=== PATIENT | female | born 1935 | race Caucasian/White ===

== ENCOUNTER → 2016-05-22 | Outpatient (CLI) | payer MEDICARE ==
[2016-05-22 10:00] LABS: ALBUMIN 3.7 GM/DL (3.2-5.2); ALBUMIN/GLOBULIN RATIO 1.09 (1.00-1.93); ALKALINE PHOSPHATASE 61 U/L (45-117); ALT/SGPT 23 U/L (12-78); ANION GAP 6 MEQ/L (8-16); AST/SGOT 18 U/L (15-37); BILIRUBIN,TOTAL 0.4 MG/DL (0.2-1.0); BLOOD UREA NITROGEN 28 MG/DL (7-18); CALCIUM LEVEL 8.8 MG/DL (8.8-10.2); CARBON DIOXIDE LEVEL 31 MEQ/L (21-32); CHLORIDE LEVEL 105 MEQ/L (98-107); CHOLESTEROL LEVEL 209 MG/DL (<200); CREATININE FOR GFR 0.74 MG/DL (0.55-1.02); GLOMERULAR FILTRATION RATE > 60.0 (>32); GLUCOSE, FASTING 97 MG/DL (83-110); POTASSIUM SERUM 3.9 MEQ/L (3.5-5.1); SODIUM LEVEL 142 MEQ/L (136-145); TOTAL PROTEIN 7.1 GM/DL (6.4-8.2); TRIGLYCERIDES LEVEL 123 MG/DL (<150)
== END ==
LOC: M WUC 08:03
PROVIDERS: ATTEND Internal Medicine
DX: E78.00 Pure hypercholesterolemia, unspecified (principal)

== ENCOUNTER → 2016-10-04 | Outpatient (REF) | payer MEDICARE ==
[~2016-10-04] MED LIST: ALEN70TA39 PO; ASPI81TA85 PO; ATOR1TAB19 PO; BISO5TAB5 PO; CALC600T60 PO; CEPH500C PO; D 50CAP PO; ERYT5OPO OD; FISH306C PO
== END ==
LOC: M SFHCPLAZ 11:21
PROVIDERS: ATTEND Nurse Practitioner Adult Health
DX: R30.0 Dysuria (principal)

== ENCOUNTER → 2016-10-16 | Outpatient (REF) | payer MEDICARE | LOC: M LAB REF 14:37 | PROVIDERS: ATTEND Ophthalmology | DX: L57.0 Actinic keratosis (principal) ==

== ENCOUNTER 2016-10-20 21:54 | Emergency (ER) | payer MEDICARE ==
[~2016-10-20] VITALS: Ht 152.4 cm; Wt 47.7 kg
[2016-10-20] MEDS ORDERED: CALC600T60 PO (22:14)
[2016-10-20] MEDS ORDERED: FISH306C PO (22:14)
[2016-10-20] MEDS ORDERED: ALEN70TA39 PO (22:14)
[2016-10-20] MEDS ORDERED: ATOR1TAB19 PO (22:14)
[2016-10-20] MEDS ORDERED: D 50CAP PO (22:14)
[2016-10-20] MEDS ORDERED: ASPI81TA85 PO (22:14)
[2016-10-20] MEDS ORDERED: CEPH500C PO (22:14)
[2016-10-20] MEDS ORDERED: ERYT5OPO OD (22:14)
[2016-10-20] MEDS ORDERED: BISO5TAB5 PO (22:14)
[2016-10-20] MEDS ORDERED: OXYMETAZOLINE NASAL SPRAY (AFRIN) ONE (23:30)
[2016-10-21 00:34] VITALS: BP 143/78
== END 2016-10-21 00:57 | disposition home or self-care (01) ==
LOC: M ED 21:54
DX: R04.0 Epistaxis (principal); Z79.82 Long term (current) use of aspirin; Z79.899 Other long term (current) drug therapy

== ENCOUNTER → 2016-12-06 | Outpatient (CLI) | payer MEDICARE ==
[2016-12-06 09:22] LABS: ALBUMIN 3.5 GM/DL (3.2-5.2); ALBUMIN/GLOBULIN RATIO 0.92 (1.00-1.93); ALKALINE PHOSPHATASE 66 U/L (45-117); ALT/SGPT 26 U/L (12-78); ANION GAP 6 MEQ/L (8-16); AST/SGOT 18 U/L (15-37); BILIRUBIN,TOTAL 0.5 MG/DL (0.2-1.0); BLOOD UREA NITROGEN 20 MG/DL (7-18); CALCIUM LEVEL 9.1 MG/DL (8.8-10.2); CARBON DIOXIDE LEVEL 29 MEQ/L (21-32); CHLORIDE LEVEL 105 MEQ/L (98-107); CHOLESTEROL LEVEL 205 MG/DL (<200); CREATININE FOR GFR 0.81 MG/DL (0.55-1.02); GLOMERULAR FILTRATION RATE > 60.0 (>32); GLUCOSE, FASTING 95 MG/DL (83-110); POTASSIUM SERUM 4.2 MEQ/L (3.5-5.1); SODIUM LEVEL 140 MEQ/L (136-145); TOTAL PROTEIN 7.3 GM/DL (6.4-8.2); TRIGLYCERIDES LEVEL 141 MG/DL (<150)
== END ==
LOC: M WUC 08:02
PROVIDERS: ATTEND Internal Medicine
DX: E78.00 Pure hypercholesterolemia, unspecified (principal); M81.0 Age-related osteoporosis without current pathological fracture

== ENCOUNTER → 2016-12-18 | Outpatient (REF) | payer MEDICARE | LOC: M SFHCPLAZ 12:25 | PROVIDERS: ATTEND Nurse Practitioner Adult Health | DX: Z12.72 Encounter for screening for malignant neoplasm of vagina (principal) ==

== ENCOUNTER 2017-06-01 10:22 | Day surgery (SDC) | payer MEDICARE ==
[2017-06-01] MEDS: LR 1,000 ML IV (11:25)
[2017-06-01] MEDS ORDERED: PROPOFOL 200 MG/20 ML VIAL As Ordered (12:38)
[2017-06-01] MEDS ORDERED: LIDOCAINE 2% INJ 100 MG/5 ML SDV (FOR ANES.) As Ordered (12:38)
[2017-06-01] MEDS ORDERED: fentaNYL 100 MCG/2 ML INJECTION (J3010) As Ordered (12:39)
[2017-06-01] MEDS ORDERED: MIDAZOLAM INJ 2 MG/2 ML VIAL (J2250) As Ordered (12:39)
[2017-06-01] MEDS ORDERED: ePHEDrine SULFATE 25 MG/5 ML(5MG/ML) SYRINGE As Ordered (14:03)
[2017-06-01] MEDS ORDERED: ONDANSETRON 4MG/2ML VIAL (J2405) IV (14:45)
[2017-06-01] MEDS ORDERED: NORCO, ANEXSIA 5/325MG TABLET (HYDROcodone/ACETAMINOPHEN) PO ×2 (14:45)
[2017-06-01] MEDS ORDERED: fentaNYL 100 MCG/2 ML INJECTION (J3010) IV (14:45)
[2017-06-01] MEDS ORDERED: LR 1,000 ML IV (14:45)
== END 2017-06-01 16:20 | disposition home or self-care (01) ==
LOC: M SDC 10:22
DX: D12.9 Benign neoplasm of anus and anal canal (principal); E78.5 Hyperlipidemia, unspecified; Z79.899 Other long term (current) drug therapy; Z79.82 Long term (current) use of aspirin
CPT/HCPCS: 46922

== ENCOUNTER 2017-12-19 07:30 | Day surgery (SDC) | payer MEDICARE ==
[2017-12-19] MEDS: NS 1,000 ML IV (07:45)
[2017-12-19] MEDS ORDERED: PROPOFOL 200 MG/20 ML VIAL As Ordered ×2 (08:51→09:12)
[2017-12-19] MEDS ORDERED: LIDOCAINE 2% INJ 100 MG/5 ML SDV (FOR ANES.) As Ordered (08:51)
== END 2017-12-19 09:46 | disposition home or self-care (01) ==
LOC: M OPP 07:30
DX: R19.7 Diarrhea, unspecified (principal); M81.0 Age-related osteoporosis without current pathological fracture; E78.00 Pure hypercholesterolemia, unspecified; Z79.82 Long term (current) use of aspirin; Z79.899 Other long term (current) drug therapy; Z90.710 Acquired absence of both cervix and uterus; Z91.89 Other specified personal risk factors, not elsewhere classified
CPT/HCPCS: 45378

== ENCOUNTER → 2017-12-26 | Outpatient (CLI) | payer MEDICARE ==
[2017-12-26 09:10] LABS: HEMATOCRIT 43.5 % (36.0-47.0); HEMOGLOBIN 14.1 g/dl (12.0-15.5); MEAN CORPUSCULAR HGB CONC 32.4 g/dl (32.0-36.5); MEAN CORPUSCULAR VOLUME 89.3 fl (80.0-96.0); PLATELET COUNT, AUTOMATED 274 10^3/uL (150-450); RED BLOOD COUNT 4.87 10^6/uL (4.00-5.40); RED CELL DISTRIBUTION WIDTH 13.1 % (11.5-14.5); WHITE BLOOD COUNT 4.9 10^3/uL (4.0-10.0)
[2017-12-26 09:51] LABS: ALBUMIN 3.8 GM/DL (3.2-5.2); ALBUMIN/GLOBULIN RATIO 1.09 (1.00-1.93); ALKALINE PHOSPHATASE 68 U/L (45-117); ALT/SGPT 26 U/L (12-78); ANION GAP 6 MEQ/L (8-16); AST/SGOT 21 U/L (7-37); BILIRUBIN,TOTAL 0.5 MG/DL (0.2-1.0); BLOOD UREA NITROGEN 16 MG/DL (7-18); CALCIUM LEVEL 9.4 MG/DL (8.8-10.2); CARBON DIOXIDE LEVEL 30 MEQ/L (21-32); CHLORIDE LEVEL 104 MEQ/L (98-107); CREATININE FOR GFR 0.86 MG/DL (0.55-1.30); GLOMERULAR FILTRATION RATE > 60.0 (>32); GLUCOSE, FASTING 94 MG/DL (70-100); MAGNESIUM LEVEL 2.4 MG/DL (1.8-2.4); POTASSIUM SERUM 4.3 MEQ/L (3.5-5.1); SODIUM LEVEL 140 MEQ/L (136-145); TOTAL PROTEIN 7.3 GM/DL (6.4-8.2)
[2017-12-26 10:00] LABS: TOTAL 25(OH) VITAMIN D 67.3 NG/ML (30.0-100.0)
== END ==
LOC: M WUC 08:12
DX: E78.00 Pure hypercholesterolemia, unspecified (principal); I47.1 Supraventricular tachycardia; M81.0 Age-related osteoporosis without current pathological fracture; Z86.010 Personal history of colon polyps; Z79.899 Other long term (current) drug therapy
CPT/HCPCS: 83735

== ENCOUNTER → 2018-02-14 | Outpatient (REF) | payer MEDICARE | LOC: M LAB REF 09:02 | DX: R19.8 Other specified symptoms and signs involving the digestive system and abdomen (principal) | CPT/HCPCS: 83630 ==

== ENCOUNTER → 2018-02-20 | Outpatient (CLI) | payer MEDICARE ==
[~2018-02-20] MED LIST changes: -ALEN70TA39 PO; +ALEN70TA57 PO; +MULT1TAB10 PO; +REFR0.5D8 OU; +REST0.05 OU; +VITA500T PO
--- NOTE | 2018-02-20 10:17 | REP ---
KUB: Single view. History: Change in bowel habits. Sitz marker study. Sitz markers were taken on February 15 according to the patient. Findings: Bowel gas pattern is normal. There are no visible retained Sitz markers in the bowel content. Psoas margins and flank stripes are intact. No mass, organomegaly or pathologic calcification is seen. 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 Impression: No retained Sitz markers seen. Electronically Signed by Christopher Coreas MD 02/20/2018 08:29 P
== END ==
LOC: M RAD 02-15 09:28
PROVIDERS: ATTEND Physician Assistant Medical
DX: R19.4 Change in bowel habit (principal)

== ENCOUNTER → 2018-07-02 | Outpatient (CLI) | payer MEDICARE ==
[~2018-07-02] MED LIST changes: -ALEN70TA57 PO; +ALEN70TA74 PO; +ERYT1OIN26 OD; -ERYT5OPO OD
[2018-07-02 09:33] LABS: ALBUMIN 3.7 GM/DL (3.2-5.2); BILIRUBIN,TOTAL 0.4 MG/DL (0.2-1.0); CALCIUM LEVEL 9.1 MG/DL (8.8-10.2); CHOLESTEROL RISK RATIO 2.636 (<5); GLOMERULAR FILTRATION RATE 56.2 (>32); POTASSIUM SERUM 4.2 MEQ/L (3.5-5.1); TOTAL PROTEIN 7.1 GM/DL (6.4-8.2)
== END ==
LOC: M WUC 08:08
PROVIDERS: ATTEND Internal Medicine
DX: E78.00 Pure hypercholesterolemia, unspecified (principal)

== ENCOUNTER → 2018-11-05 | Outpatient (CLI) | payer MEDICARE ==
[~2018-11-05] MED LIST changes: -BISO5TAB5 PO; +BISO5TAB9 PO
--- NOTE | 2018-11-05 10:26 | REP ---
Clinical: Nonacute trauma to the fifth toe. Technique: AP, lateral, bilateral oblique views of the left foot. Findings: Generalized age-related degenerative changes are appreciated. No acute fracture or dislocation is appreciated. No periosteal reaction identified to suggest healed fracture. No subcutaneous emphysema or radiodense foreign body. Impression: Generalized age-related changes. No evidence for acute or healed injury. Electronically Signed by Marquis Weber MD 11/05/2018 10:18 A
== END ==
LOC: M WUC 09:48
PROVIDERS: ATTEND Internal Medicine
DX: S90.935A Unspecified superficial injury of left lesser toe(s), initial encounter (principal)

== ENCOUNTER → 2019-01-08 | Outpatient (CLI) | payer MEDICARE ==
[2019-01-08 10:13] LABS: HEMATOCRIT 42.1 % (36.0-47.0); HEMOGLOBIN 13.9 g/dl (12.0-15.5); MEAN CORPUSCULAR HEMOGLOBIN 30.3 pg (27.0-33.0); MEAN CORPUSCULAR VOLUME 91.7 fl (80.0-96.0); PLATELET COUNT, AUTOMATED 261 10^3/uL (150-450); RED BLOOD COUNT 4.59 10^6/uL (4.00-5.40); WHITE BLOOD COUNT 5.5 10^3/uL (4.0-10.0)
[2019-01-08 10:51] LABS: ALBUMIN 3.5 GM/DL (3.2-5.2); ALT/SGPT 25 U/L (12-78); BILIRUBIN,TOTAL 0.5 MG/DL (0.2-1.0); BLOOD UREA NITROGEN 21 MG/DL (7-18); CALCIUM LEVEL 9.4 MG/DL (8.8-10.2); CARBON DIOXIDE LEVEL 31 MEQ/L (21-32); CHLORIDE LEVEL 105 MEQ/L (98-107); CREATININE FOR GFR 0.85 MG/DL (0.55-1.30); GLOMERULAR FILTRATION RATE > 60.0 (>32); GLUCOSE, FASTING 87 MG/DL (70-100); POTASSIUM SERUM 4.5 MEQ/L (3.5-5.1); SODIUM LEVEL 141 MEQ/L (136-145); TOTAL PROTEIN 7.4 GM/DL (6.4-8.2)
[2019-01-08 10:52] LABS: TOTAL 25(OH) VITAMIN D 59.9 NG/ML (30.0-100.0)
== END ==
LOC: M WUC 08:04
PROVIDERS: ATTEND Internal Medicine
DX: M81.0 Age-related osteoporosis without current pathological fracture (principal); Z86.010 Personal history of colon polyps; I47.1 Supraventricular tachycardia; E78.00 Pure hypercholesterolemia, unspecified

== ENCOUNTER → 2019-01-22 | Outpatient (CLI) | payer MEDICARE ==
--- NOTE | 2019-01-30 09:31 | SLEEPHOME ---
DATE OF PROCEDURE: 01/22/2019 ORDERED BY: Dr. Zarate Diagnostic home sleep testing was performed due to concern for the obstructive sleep apnea syndrome. For testing a nocturnal T3 respiratory monitoring device was used. Continuous record was made of pulse, oxygen saturation, airflow, chest, abdominal strain and body position. 11 hours and 59 minutes of data were reviewed. There were 8 hours and 29 minutes marked as time in bed. During the interval marked time in bed there were 45 respiratory events identified of 10 seconds in duration or greater for a respiratory event index of 5.3. The events were primarily obstructive. Baseline pulse rate 54. Pulse rate ranged 48-89. Baseline saturation 94%. Saturations fell to 87%. Testing was performed in both the supine and nonsupine positions. Respiratory events were more common in the supine posture. IMPRESSION: Abnormal home sleep testing with repetitive respiratory events and oxygen desaturations to 87% with a respiratory event index of 5.3 is consistent with the obstructive sleep apnea syndrome. RECOMMENDATIONS: Sleep position for avoidance of the supine posture may be sufficient. If the patient's symptoms persists, referral for formal sleep evaluation would be prudent.
== END ==
LOC: M SLEEP HO 09:15
PROVIDERS: ATTEND Internal Medicine
DX: R29.818 Other symptoms and signs involving the nervous system (principal)

== ENCOUNTER → 2019-02-16 | Outpatient (CLI) | payer MEDICARE ==
--- NOTE | 2019-02-16 16:26 | REP ---
Chest x-ray: Two views. History: Acute bronchitis. Findings: The lungs are well inflated and clear. Pleural angles are sharp. Heart size is normal. The aorta is calcific. Pulmonary vasculature is not increased. Impression: No acute disease. Electronically Signed by Christopher Coreas MD 02/16/2019 04:17 P
== END ==
LOC: M WUC 14:46
PROVIDERS: ATTEND Physician Assistant
DX: J20.9 Acute bronchitis, unspecified (principal); J01.10 Acute frontal sinusitis, unspecified

== ENCOUNTER → 2019-04-25 | Outpatient (CLI) | payer MEDICARE ==
[~2019-04-25] MED LIST changes: +BISO5TAB14 PO; -BISO5TAB9 PO
--- NOTE | 2019-04-25 12:53 | REPPI ---
Clinical: Dyspnea on exertion . Comparison: 02/16/2019 of the . Technique: PA and lateral. Findings: The mediastinum and cardiac silhouette are normal. The lung lo are clear and without acute consolidation, effusion, or pneumothorax. The skeletal structures are intact and normal. Impression: 1. No acute cardiopulmonary process. Electronically Signed by Marquis Weber MD 04/25/2019 12:45 P
== END ==
LOC: M PLAIMG 12:01
PROVIDERS: ATTEND Internal Medicine
DX: R06.09 Other forms of dyspnea (principal)
CPT/HCPCS: 71046; 93005; G0463

== ENCOUNTER → 2019-04-26 | Outpatient (CLI) | payer MEDICARE ==
--- NOTE | 2019-04-29 18:54 | HOLTMON ---
[facility] Test Date: 2019-04-26 Pat Name: CA MORE Department: Room: - Gender: Female Political Organizer: Teri Blackburn/RONIT ALEXANDER : 1935 Requested By: Donnie Zarate Order Number: [id number] Reading MD: Sandeep Wolf Interpretive Statements Underlying sinus rhythm with rate varying from 48 bpm at 6:39 AM in 114 bpm at 7:08 PM, averaging 66 bpm. An average of 10 PACs per hour, 1 atrial couplet per hour but no PSVT. Average of approximately 10 PVCs per hour, one ventricular couplet and one run of accelerated idioventricular rhythm averaging 75 bpm but no ventricular tachycardia. No significant pauses or AV block. The patient reported "fast heartbeat" on 3 separate occasions that did not correlate with any rhythm or rate change; sinus at 64-75 bpm. Rhythm findings not outside normal limits. Electronically Signed on 04-29-2019 18:53:48 EST by Sandeep Wolf
== END ==
LOC: M EKG 08:35
PROVIDERS: ATTEND Internal Medicine
DX: I47.1 Supraventricular tachycardia (principal)

== ENCOUNTER → 2019-05-12 | Outpatient (CLI) | payer MEDICARE | LOC: M SLEEP 19:04 | PROVIDERS: ATTEND Nurse Practitioner Family | DX: G47.33 Obstructive sleep apnea (adult) (pediatric) (principal) ==

== ENCOUNTER → 2019-07-14 | Outpatient (CLI) | payer MEDICARE ==
[~2019-07-14] MED LIST changes: -ERYT1OIN26 OD; +ERYT5OIN25 OD; +VITA-243 PO; -VITA500T PO
[2019-07-14 12:12] LABS: ALBUMIN 3.6 GM/DL (3.2-5.2); ALT/SGPT 25 U/L (12-78); BILIRUBIN,TOTAL 0.5 MG/DL (0.2-1.0); BLOOD UREA NITROGEN 22 MG/DL (7-18); CALCIUM LEVEL 8.6 MG/DL (8.8-10.2); CARBON DIOXIDE LEVEL 29 MEQ/L (21-32); CHLORIDE LEVEL 104 MEQ/L (98-107); CHOLESTEROL LEVEL 224 MG/DL (<200); CHOLESTEROL RISK RATIO 2.986 (<5); GLOMERULAR FILTRATION RATE > 60.0 (>32); GLUCOSE, FASTING 91 MG/DL (70-100); HDL CHOLESTEROL 75 MG/DL (>40); LDL CHOLESTEROL 126 MG/DL (<100); NON-HDL-C 149 MG/DL; POTASSIUM SERUM 4.2 MEQ/L (3.5-5.1); SODIUM LEVEL 139 MEQ/L (136-145); TOTAL PROTEIN 7.2 GM/DL (6.4-8.2); TRIGLYCERIDES LEVEL 115 MG/DL (<150)
== END ==
LOC: M WUC 08:13
PROVIDERS: ATTEND Internal Medicine
DX: E78.00 Pure hypercholesterolemia, unspecified (principal)

== ENCOUNTER → 2020-01-30 | Outpatient (CLI) | payer MEDICARE ==
[~2020-01-30] MED LIST changes: -ASPI81TA85 PO; +ASPI81TA86 PO
[2020-01-30 12:20] LABS: ALBUMIN 3.7 GM/DL (3.2-5.2); ALT/SGPT 24 U/L (12-78); BILIRUBIN,TOTAL 0.4 MG/DL (0.2-1.0); BLOOD UREA NITROGEN 25 MG/DL (7-18); CALCIUM LEVEL 9.1 MG/DL (8.8-10.2); CARBON DIOXIDE LEVEL 30 MEQ/L (21-32); CHLORIDE LEVEL 104 MEQ/L (98-107); CHOLESTEROL LEVEL 214 MG/DL (<200); CHOLESTEROL RISK RATIO 2.779 (<5); CREATININE FOR GFR 0.92 MG/DL (0.55-1.30); GLOMERULAR FILTRATION RATE > 60.0 (>32); GLUCOSE, FASTING 96 MG/DL (70-100); HDL CHOLESTEROL 77 MG/DL (>40); LDL CHOLESTEROL 115 MG/DL (<100); NON-HDL-C 137 MG/DL; SODIUM LEVEL 139 MEQ/L (136-145); TOTAL PROTEIN 7.4 GM/DL (6.4-8.2); TRIGLYCERIDES LEVEL 110 MG/DL (<150)
== END ==
LOC: M WUC 08:15
PROVIDERS: ATTEND Internal Medicine
DX: E78.00 Pure hypercholesterolemia, unspecified (principal)

== ENCOUNTER → 2020-02-04 | Outpatient (CLI) | payer MEDICARE ==
[2020-02-04 12:52] VITALS: BP 132/78
--- NOTE | 2020-02-04 16:31 | REP ---
INDICATION: R92.8 RIGHT U/S GUIDED BX/POSSIBLE ASPIRATION/CK CLIP PLACEM. Post cyst aspiration under ultrasound guidance right breast. No marker clip placed. COMPARISON: Comparison mammography December 25, 2019. TECHNIQUE: Mediolateral oblique and craniocaudal mammographic views right breast were obtained with 3D tomography. CAD was utilized. FINDINGS: Scattered fibroglandular elements are seen. The previously noted low-density nodular opacity in the inferior medial aspect of the right breast is no longer apparent. No marker clip is visualized. There are scattered benign macrocalcifications. No suspicious mammographic finding. The Volpara volumetric breast density pattern is B. IMPRESSION: BIRADS/ACR category 2 benign mammogram . This mammogram was interpreted with the aid of an FDA-approved computer-aided detection system. RECOMMENDATION: Repeat screening mammography recommended 1 year (for women over 40). The patient letter being requested is M2. <Electronically signed by Hipolito Coreas > 02/04/20 [id number]
--- NOTE | 2020-02-04 18:50 | REP ---
INDICATION: R92.8 RIGHT BREAST BX/POSSIBLE ASPIRATION. COMPARISON: Comparison sonography 12/25/2019.. TECHNIQUE: Ultrasound guidance is provided to Dr. Armando. FINDINGS: Ultrasound guidance was provided to Dr. Armando who performed ultrasound-guided cyst aspiration right breast 3 o'clock position. IMPRESSION: Sonographic guidance for procedural imaging. <Electronically signed by Hipolito Coreas > 02/04/20 [id number]
--- NOTE | 2020-02-04 21:01 | ROOPDOC ---
[facility] Report Of Operation Report of Operation Date of the procedure:02/04/20 Diagnosis:Right suspicious lesion Procedure:Ultrasound guided aspiration of Right breast lesion Proceduralist: Ashley Stern D.O. EBL: minimal Lidocaine 1% LOT [id number] Expiration: 10/2022 Sodium Bicarbonate 8.4% LOT [id number] Expiration: 12/2020 Procedure details: Patient had abnormal right breast mammogram which was read ad BIRADS4. Mammogram showed nodule on fly views. Sonographic target was identified at 3:00 2-3 CFN which was felt to be a two adjacent nodules, likely solid per radiology report. I discussed with patient that before biopsy is done I will attempt aspiration since on my exam the lesions look more cystic. Informed consent was obtained. The most common risk and possible complications including bleeding, hematoma, bruising, infection, injury to surrounding structures were explained to the patient and she expressed understanding. Patient was taken to the procedure room and placed on the bed in the supine position. Appropriate time out was done stating patients name, date of , and the procedure to be performed. The right breast was prepped and draped in the usual fashion. The ultrasound was used to confirm the location of the suspicious cystic lesion in the right breast at 3:00 2-3 centimeters from the nipple. Plain Lidocaine 1% and 8.4% sodium bicarbonate 10:1 mix was used to numb the skin, and tissues along the anticipated aspiration tract. 18 G needle was used to aspirate cyst under direct ultrasound guidance. 1 cc was aspirated. The as pirated fluid was cloudy and was sent for cytology. The cystic lesion completely collapsed and images were captured. At this point I decided that biopsy is not needed in this patient. No clip was placed. Manual pressure over the cyst aspiration site and tract was held. No bleeding was noted upon removal of the pressure. Post procedure right breast mammogram with tomosynthesis showed resolution of the nodular lesion. Patient tolerated procedure well. Discharge instructions were discussed with the patient and she expressed understanding. ASHLEY STERN DO Feb 04, 2020 21:01
== END ==
LOC: M WHCPRO 10:37
PROVIDERS: ATTEND Surgery
DX: N60.11 Diffuse cystic mastopathy of right breast (principal)
CPT/HCPCS: 10005; 77065; 88173; G0279

== ENCOUNTER → 2020-02-11 | Outpatient (CLI) | payer SELFPAY | LOC: M LABSMTC 13:26 | PROVIDERS: ATTEND Pediatrics | DX: Z11.59 Encounter for screening for other viral diseases (principal) ==

== ENCOUNTER → 2020-08-13 | Outpatient (CLI) | payer MEDICARE ==
[~2020-08-13] MED LIST changes: -ALEN70TA74 PO; +ALEN70TA82 PO
[2020-08-13 09:54] LABS: MEAN CORPUSCULAR HEMOGLOBIN 29.4 pg (27.0-33.0); MEAN CORPUSCULAR HGB CONC 32.6 g/dl (32.0-36.5); MEAN CORPUSCULAR VOLUME 90.3 fl (80.0-96.0); PLATELET COUNT, AUTOMATED 255 10^3/uL (150-450); RED BLOOD COUNT 4.76 10^6/uL (4.00-5.40); WHITE BLOOD COUNT 5.1 10^3/uL (4.0-10.0)
[2020-08-13 10:22] LABS: ALBUMIN 3.7 GM/DL (3.2-5.2); ALT/SGPT 28 U/L (12-78); BILIRUBIN,TOTAL 0.5 MG/DL (0.2-1.0); BLOOD UREA NITROGEN 22 MG/DL (7-18); CALCIUM LEVEL 9.1 MG/DL (8.8-10.2); CARBON DIOXIDE LEVEL 31 MEQ/L (21-32); CHLORIDE LEVEL 107 MEQ/L (98-107); CHOLESTEROL LEVEL 187 MG/DL (<200); CHOLESTEROL RISK RATIO 2.367 (<5); CREATININE FOR GFR 0.84 MG/DL (0.55-1.30); GLOMERULAR FILTRATION RATE > 60.0 (>32); GLUCOSE, FASTING 95 MG/DL (70-100); HDL CHOLESTEROL 79 MG/DL (>40); LDL CHOLESTEROL 92 MG/DL (<100); NON-HDL-C 108 MG/DL; POTASSIUM SERUM 4.3 MEQ/L (3.5-5.1); SODIUM LEVEL 141 MEQ/L (136-145); TOTAL PROTEIN 7.3 GM/DL (6.4-8.2); TRIGLYCERIDES LEVEL 80 MG/DL (<150)
== END ==
LOC: M WUC 08:07
PROVIDERS: ATTEND Nurse Practitioner Adult Health
DX: Z86.010 Personal history of colon polyps (principal); E78.00 Pure hypercholesterolemia, unspecified; I47.1 Supraventricular tachycardia; M81.0 Age-related osteoporosis without current pathological fracture

== ENCOUNTER → 2021-02-09 | Outpatient (CLI) | payer MEDICARE ==
[2021-02-09 10:41] LABS: ALBUMIN 3.7 GM/DL (3.2-5.2); ALT/SGPT 32 U/L (12-78); BILIRUBIN,TOTAL 0.6 MG/DL (0.2-1.0); BLOOD UREA NITROGEN 27 MG/DL (7-18); CALCIUM LEVEL 8.9 MG/DL (8.8-10.2); CARBON DIOXIDE LEVEL 32 MEQ/L (21-32); CHLORIDE LEVEL 106 MEQ/L (98-107); CHOLESTEROL LEVEL 207 MG/DL (<200); CHOLESTEROL RISK RATIO 2.555 (<5); CREATININE FOR GFR 0.88 MG/DL (0.55-1.30); GLOMERULAR FILTRATION RATE > 60.0 (>32); GLUCOSE, FASTING 103 MG/DL (70-100); HDL CHOLESTEROL 81 MG/DL (>40); LDL CHOLESTEROL 106 MG/DL (<100); NON-HDL-C 126 MG/DL; POTASSIUM SERUM 4.3 MEQ/L (3.5-5.1); SODIUM LEVEL 140 MEQ/L (136-145); TOTAL PROTEIN 7.5 GM/DL (6.4-8.2); TRIGLYCERIDES LEVEL 99 MG/DL (<150)
== END ==
LOC: M WUC 08:03
PROVIDERS: ATTEND Internal Medicine
DX: E78.00 Pure hypercholesterolemia, unspecified (principal); Z11.59 Encounter for screening for other viral diseases
CPT/HCPCS: 36415; 80053; 80061; G0472

== ENCOUNTER → 2021-04-18 | Outpatient (CLI) | payer MEDICARE | LOC: M WHC 08:05 | PROVIDERS: ATTEND Internal Medicine | DX: Z12.31 Encounter for screening mammogram for malignant neoplasm of breast (principal) ==

== ENCOUNTER → 2021-06-23 | Outpatient (REF) | payer MEDICARE | LOC: M SFHCWAGY 13:16 | PROVIDERS: ATTEND Surgery | DX: L98.9 Disorder of the skin and subcutaneous tissue, unspecified (principal) | CPT/HCPCS: 11104; 88305; G0463 ==

== ENCOUNTER → 2021-08-16 | Outpatient (CLI) | payer MEDICARE ==
[2021-08-16 10:34] LABS: ALBUMIN 3.5 GM/DL (3.2-5.2); ALT/SGPT 23 U/L (12-78); BILIRUBIN,TOTAL 0.5 MG/DL (0.2-1.0); BLOOD UREA NITROGEN 21 MG/DL (7-18); CARBON DIOXIDE LEVEL 31 MEQ/L (21-32); CHLORIDE LEVEL 107 MEQ/L (98-107); CHOLESTEROL LEVEL 215 MG/DL (<200); CHOLESTEROL RISK RATIO 2.986 (<5); CREATININE FOR GFR 0.87 MG/DL (0.55-1.30); GLOMERULAR FILTRATION RATE > 60.0 (>32); GLUCOSE, FASTING 94 MG/DL (70-100); HDL CHOLESTEROL 72 MG/DL (>40); LDL CHOLESTEROL 124 MG/DL (<100); NON-HDL-C 143 MG/DL; POTASSIUM SERUM 4.2 MEQ/L (3.5-5.1); SODIUM LEVEL 140 MEQ/L (136-145); TOTAL 25(OH) VITAMIN D 66.1 NG/ML (30.0-100.0); TOTAL PROTEIN 7.2 GM/DL (6.4-8.2); TRIGLYCERIDES LEVEL 95 MG/DL (<150)
== END ==
LOC: M WUC 08:03
PROVIDERS: ATTEND Internal Medicine
DX: E78.00 Pure hypercholesterolemia, unspecified (principal); M81.0 Age-related osteoporosis without current pathological fracture

== ENCOUNTER → 2021-09-19 | Outpatient (CLI) | payer MEDICARE | LOC: M WUC 10:02 | PROVIDERS: ATTEND Physician Assistant | DX: M77.31 Calcaneal spur, right foot (principal) ==

== ENCOUNTER → 2021-12-06 | Outpatient (CLI) | payer MEDICARE | LOC: M RAD 11:43 | PROVIDERS: ATTEND Physician Assistant | DX: M79.661 Pain in right lower leg (principal) ==

== ENCOUNTER → 2021-12-07 | Outpatient (CLI) | payer MEDICARE | LOC: M WUC 08:49 | PROVIDERS: ATTEND Physician Assistant | DX: M77.31 Calcaneal spur, right foot (principal); M79.671 Pain in right foot; R30.0 Dysuria ==

== ENCOUNTER → 2021-12-27 | Outpatient (REF) | payer MEDICARE | LOC: M SMT 13:01 | PROVIDERS: ATTEND Physician Assistant | DX: R39.9 Unspecified symptoms and signs involving the genitourinary system (principal) ==

== ENCOUNTER → 2022-01-24 | Outpatient (CLI) | payer MEDICARE ==
[2022-01-24 15:46] LABS: APPEARANCE, URINE MANUAL CLEAR (CLEAR); BILIRUBIN, URINE MANUAL NEGATIVE (NEGATIVE); BLOOD URINE MANUAL NEGATIVE (NEGATIVE); COLOR, URINE MANUAL LT YELLOW (YELLOW); GLUCOSE, URINE (UA) MANUAL NEGATIVE (NEGATIVE); KETONE, URINE MANUAL NEGATIVE (NEGATIVE); LEUKOCYTE ESTERASE, URINE MAN POSITIVE (NEGATIVE); NITRITE, URINE MANUAL NEGATIVE (NEGATIVE); PH,URINE MAN 5.5 UNITS (5.0 - 7.0); PROTEIN, URINE MANUAL NEGATIVE (NEGATIVE); SPECIFIC GRAVITY,URINE MANUAL 1.015 (1.002-1.035); UROBILINOGEN, URINE MANUAL NORMAL (NORMAL)
[2022-01-24 16:04] LABS: RENAL EPITHELIAL CELLS, URINE SMALL AMOUNT /hpf; SQUAMOUS EPITHELIAL CELL URINE SMALL AMOUNT /hpf (SMALL AMT)
[2022-01-24 16:05] LABS: BACTERIA, URINE NONE SEEN; HYALINE CAST, URINE NONE SEEN /lpf (0-1); MUCUS, URINE SMALL AMOUNT (NEGATIVE)
== END ==
LOC: M PLALAB 12:52
PROVIDERS: ATTEND Physician Assistant
DX: R31.9 Hematuria, unspecified (principal)

== ENCOUNTER → 2022-02-15 | Outpatient (CLI) | payer MEDICARE ==
[2022-02-15 10:02] LABS: HEMATOCRIT 43.7 % (36.0-47.0); HEMOGLOBIN 13.8 g/dl (12.0-15.5); MEAN CORPUSCULAR HEMOGLOBIN 28.2 pg (27.0-33.0); MEAN CORPUSCULAR HGB CONC 31.6 g/dl (32.0-36.5); MEAN CORPUSCULAR VOLUME 89.4 fl (80.0-96.0); PLATELET COUNT, AUTOMATED 302 10^3/uL (150-450); RED BLOOD COUNT 4.89 10^6/uL (4.00-5.40); WHITE BLOOD COUNT 5.5 10^3/uL (4.0-10.0)
[2022-02-15 10:35] LABS: HEMOGLOBIN A1c 5.6 % (4.0-6.0)
[2022-02-15 11:56] LABS: VITAMIN B12 LEVEL 732 PG/ML (211-911)
[2022-02-15 11:57] LABS: THYROID STIMULATING HORMONE 4.013 uIU/ML (0.55-4.78)
[2022-02-15 13:16] LABS: ALBUMIN 3.4 G/DL (3.2-5.2); ALKALINE PHOSPHATASE 69 U/L (46-116); ALT/SGPT 24 U/L (7.0-40); AST/SGOT 27 U/L (<34); BILIRUBIN,TOTAL 0.6 MG/DL (0.3-1.2); BLOOD UREA NITROGEN 22 MG/DL (9-23); CALCIUM LEVEL 8.9 MG/DL (8.3-10.6); CARBON DIOXIDE LEVEL 31 MMOL/L (20-31); CHLORIDE LEVEL 101 MMOL/L (98-107); CHOLESTEROL LEVEL 180 MG/DL (<200); CHOLESTEROL RISK RATIO 2.51 (<5); CREATININE FOR GFR 0.92 MG/DL (0.55-1.30); GLOMERULAR FILTRATION RATE > 60.0 (>32); GLUCOSE, FASTING 88 MG/DL (74-106); HDL CHOLESTEROL 71.7 MG/DL (>40); LDL CHOLESTEROL 88.5 MG/DL (<100); NON-HDL-C 108 MG/DL; POTASSIUM SERUM 4.6 MMOL/L (3.5-5.1); SODIUM LEVEL 139 MMOL/L (136-145); TOTAL PROTEIN 7.2 G/DL (5.7-8.2); TRIGLYCERIDES LEVEL 99 MG/DL (<150)
[2022-02-15 13:29] LABS: CREATININE, URINE 412.2 MG/DL
[2022-02-15 13:36] LABS: C REACTIVE PROTEIN QUANTITATIV < 0.40 MG/DL (<1.0)
== END ==
LOC: M WUC 08:13
PROVIDERS: ATTEND Internal Medicine Hematology
DX: E78.00 Pure hypercholesterolemia, unspecified (principal); Z79.899 Other long term (current) drug therapy

== ENCOUNTER → 2022-04-25 | Outpatient (CLI) | payer MEDICARE | LOC: M WHC 08:55 | PROVIDERS: ATTEND Internal Medicine Hematology | DX: Z12.31 Encounter for screening mammogram for malignant neoplasm of breast (principal); Z13.820 Encounter for screening for osteoporosis; M81.0 Age-related osteoporosis without current pathological fracture ==

== ENCOUNTER → 2022-05-09 | Outpatient (CLI) | payer MEDICARE | LOC: M PLALAB 09:37 | PROVIDERS: ATTEND Internal Medicine Cardiovascular Disease | DX: I47.20 Ventricular tachycardia, unspecified (principal) ==

== ENCOUNTER → 2022-06-01 | Outpatient (REF) | payer MEDICARE ==
[2022-06-01 19:27] LABS: CLOSTRIDIUM DIFFICILE PCR NEGATIVE (NEGATIVE)
== END ==
LOC: M SFHCPLAZ 17:52
PROVIDERS: ATTEND Internal Medicine Hematology
DX: R19.7 Diarrhea, unspecified (principal)

== ENCOUNTER 2022-06-10 21:00 | Emergency (ER) | payer MEDICARE ==
[~2022-06-10] VITALS: Ht 149.9 cm; Wt 55.5 kg
[2022-06-10 22:27] LABS: BASO % 0.6 % (0.0-1.0); EOS # 0.1 10^3/uL (0.0-0.5); EOS % 1.4 % (0.0-3.0); HEMATOCRIT 42.2 % (36.0-47.0); HEMOGLOBIN 13.8 g/dl (12.0-15.5); LYMPH # 1.7 10^3/uL (1.5-5.0); LYMPH % 26.2 % (24.0-44.0); MEAN CORPUSCULAR HEMOGLOBIN 29.1 pg (27.0-33.0); MEAN CORPUSCULAR HGB CONC 32.7 g/dl (32.0-36.5); MONO # 0.9 10^3/uL (0.0-0.8); MONO % 13.9 % (2.0-8.0); NEUTROPHILS # 3.7 10^3/uL (1.5-8.5); NEUTROPHILS % 57.6 % (36.0-66.0); PLATELET COUNT, AUTOMATED 306 10^3/uL (150-450); RED BLOOD COUNT 4.74 10^6/uL (4.00-5.40); WHITE BLOOD COUNT 6.5 10^3/uL (4.0-10.0)
[2022-06-10 22:36] LABS: LIPASE 37 U/L (12-53)
[2022-06-10 22:38] LABS: ALBUMIN 3.4 G/DL (3.2-5.2); ALKALINE PHOSPHATASE 81 U/L (46-116); ALT/SGPT 25 U/L (7.0-40); AST/SGOT 28 U/L (<34); BILIRUBIN,TOTAL 0.4 MG/DL (0.3-1.2); BLOOD UREA NITROGEN 26 MG/DL (9-23); CALCIUM LEVEL 8.9 MG/DL (8.3-10.6); CARBON DIOXIDE LEVEL 25 MMOL/L (20-31); CHLORIDE LEVEL 107 MMOL/L (98-107); CREATININE FOR GFR 0.92 MG/DL (0.55-1.30); GLOMERULAR FILTRATION RATE > 60.0 (>32); GLUCOSE, FASTING 101 MG/DL (74-106); POTASSIUM SERUM 3.9 MMOL/L (3.5-5.1); SODIUM LEVEL 140 MMOL/L (136-145)
[2022-06-10] MEDS ORDERED: ISOVUE-370 76% 100ML VIAL As Ordered ONE (23:17)
[2022-06-11] MEDS ORDERED: PEPC1TAB5 PO (00:27)
[2022-06-11] MEDS ORDERED: AMOX875T2 PO (00:29)
[2022-06-11 00:30] VITALS: BP 163/81
[2022-06-11] MEDS ORDERED: AUGMENTIN 875 MG TAB PO ONE (00:30)
[2022-06-12] MEDS ORDERED: CIPR-249 PO (08:23)
[2022-06-12] MEDS ORDERED: METR-265 PO (08:26)
== END 2022-06-11 00:48 | disposition home or self-care (01) ==
LOC: M ED 21:00
DX: K52.9 Noninfective gastroenteritis and colitis, unspecified (principal); I10 Essential (primary) hypertension; E78.5 Hyperlipidemia, unspecified; M81.0 Age-related osteoporosis without current pathological fracture; Z79.899 Other long term (current) drug therapy; Z79.82 Long term (current) use of aspirin
CPT/HCPCS: 36415; 71045; 74177; 80053; 83605; 83690; 85025; 93005; 99284; Q9967

== ENCOUNTER → 2022-10-11 | Outpatient (CLI) | payer MEDICARE ==
[~2022-10-11] MED LIST changes: +AMOX875T2 PO; +CIPR-249 PO; +METR-265 PO; +PEPC1TAB5 PO
[2022-10-11 10:44] LABS: HEMATOCRIT 41.7 % (36.0-47.0); HEMOGLOBIN 13.6 g/dl (12.0-15.5); MEAN CORPUSCULAR HEMOGLOBIN 29.8 pg (27.0-33.0); MEAN CORPUSCULAR HGB CONC 32.6 g/dl (32.0-36.5); MEAN CORPUSCULAR VOLUME 91.2 fl (80.0-96.0); PLATELET COUNT, AUTOMATED 290 10^3/uL (150-450); RED BLOOD COUNT 4.57 10^6/uL (4.00-5.40); WHITE BLOOD COUNT 5.8 10^3/uL (4.0-10.0)
[2022-10-11 11:11] LABS: HEMOGLOBIN A1c 5.4 % (4.0-6.0)
[2022-10-11 11:21] LABS: ALBUMIN 3.7 G/DL (3.2-5.2); ALKALINE PHOSPHATASE 64 U/L (46-116); ALT/SGPT 23 U/L (7.0-40); AST/SGOT 19 U/L (<34); BILIRUBIN,TOTAL 0.6 MG/DL (0.3-1.2); BLOOD UREA NITROGEN 19 MG/DL (9-23); CALCIUM LEVEL 9.2 MG/DL (8.3-10.6); CARBON DIOXIDE LEVEL 28 MMOL/L (20-31); CHLORIDE LEVEL 102 MMOL/L (98-107); CHOLESTEROL LEVEL 182 MG/DL (<200); CHOLESTEROL RISK RATIO 2.47 (<5); CREATININE FOR GFR 0.85 MG/DL (0.55-1.30); GLOMERULAR FILTRATION RATE > 60.0 (>32); GLUCOSE, FASTING 81 MG/DL (74-106); HDL CHOLESTEROL 73.5 MG/DL (>40); LDL CHOLESTEROL 86.7 MG/DL (<100); NON-HDL-C 108.5 MG/DL; POTASSIUM SERUM 4.1 MMOL/L (3.5-5.1); SODIUM LEVEL 138 MMOL/L (136-145); TOTAL PROTEIN 7.2 G/DL (5.7-8.2); TRIGLYCERIDES LEVEL 109 MG/DL (<150)
[2022-10-11 11:22] LABS: THYROID STIMULATING HORMONE 2.547 uIU/ML (0.55-4.78)
[2022-10-11 11:23] LABS: FREE T4 0.83 NG/DL (0.89-1.76); VITAMIN B12 LEVEL 561 PG/ML (211-911)
[2022-10-11 11:28] LABS: CREATININE, URINE 294.3 MG/DL; MAU/CREAT RATIO 8.4 MCG/MG (0.0-30.0)
[2022-10-11 11:45] LABS: C REACTIVE PROTEIN QUANTITATIV < 0.40 MG/DL (<1.0)
== END ==
LOC: M WUC 08:11
PROVIDERS: ATTEND Internal Medicine Hematology
DX: E78.00 Pure hypercholesterolemia, unspecified (principal)

== ENCOUNTER → 2022-11-14 | Outpatient (CLI) | payer MEDICARE | LOC: M SOG 07:53 | PROVIDERS: ATTEND Physician Assistant | DX: M19.041 Primary osteoarthritis, right hand (principal) ==

== ENCOUNTER 2022-11-20 07:47 | Emergency (ER) | payer MEDICARE ==
[~2022-11-20] VITALS: Ht 152.4 cm; Wt 50.9 kg
[2022-11-20] MEDS ORDERED: ATOR1TAB21 (07:57)
[2022-11-20] MEDS ORDERED: ISOVUE-370 76% 100ML VIAL As Ordered ONE (08:21)
[2022-11-20 08:43] LABS: BASO % 0.7 % (0.0-1.0); EOS # 0.1 10^3/uL (0.0-0.5); EOS % 1.3 % (0.0-3.0); HEMATOCRIT 41.3 % (36.0-47.0); HEMOGLOBIN 13.6 g/dl (12.0-15.5); LYMPH # 1.4 10^3/uL (1.5-5.0); LYMPH % 26.2 % (24.0-44.0); MEAN CORPUSCULAR HEMOGLOBIN 29.8 pg (27.0-33.0); MEAN CORPUSCULAR HGB CONC 32.9 g/dl (32.0-36.5); MEAN CORPUSCULAR VOLUME 90.4 fl (80.0-96.0); MONO # 0.5 10^3/uL (0.0-0.8); MONO % 8.9 % (2.0-8.0); NEUTROPHILS # 3.4 10^3/uL (1.5-8.5); NEUTROPHILS % 62.7 % (36.0-66.0); PLATELET COUNT, AUTOMATED 269 10^3/uL (150-450); RED BLOOD COUNT 4.57 10^6/uL (4.00-5.40); WHITE BLOOD COUNT 5.5 10^3/uL (4.0-10.0)
[2022-11-20 09:01] LABS: INR 0.99; PROTHROMBIN TIME 12.8 SECONDS (12.5-14.5)
[2022-11-20 09:02] LABS: PARTIAL THROMBOPLASTIN TIME 25.3 SECONDS (24.8-34.2)
[2022-11-20 09:07] LABS: BLOOD UREA NITROGEN 24 MG/DL (9-23); CALCIUM LEVEL 9.2 MG/DL (8.3-10.6); CARBON DIOXIDE LEVEL 29 MMOL/L (20-31); CHLORIDE LEVEL 105 MMOL/L (98-107); CPK CREATINE PHOSPHOKINASE 102 U/L (34-145); CREATININE FOR GFR 0.84 MG/DL (0.55-1.30); GLOMERULAR FILTRATION RATE > 60.0 (>32); GLUCOSE, FASTING 89 MG/DL (74-106); MB/CK RELATIVE INDEX 0.98 (< OR =4); POTASSIUM SERUM 4.1 MMOL/L (3.5-5.1); SODIUM LEVEL 141 MMOL/L (136-145)
[2022-11-20 09:09] LABS: THYROID STIMULATING HORMONE 5.093 uIU/ML (0.55-4.78)
[2022-11-20 09:49] LABS: RSV AMPLIFICATION NEGATIVE (NEGATIVE)
[2022-11-20 09:55] LABS: CK-MB VALUE MASS < 1.0 NG/ML (<3.6)
[2022-11-20 10:00] LABS: CPK CREATINE PHOSPHOKINASE 94 U/L (34-145); MB/CK RELATIVE INDEX 1.06 (< OR =4)
[2022-11-20 10:09] VITALS: BP 125/67; TEMP 97.8; O2SAT 97
== END 2022-11-20 10:20 | disposition home or self-care (01) ==
LOC: M ED 07:47
DX: R00.1 Bradycardia, unspecified (principal); E78.5 Hyperlipidemia, unspecified; M81.0 Age-related osteoporosis without current pathological fracture; Z79.82 Long term (current) use of aspirin; Z79.02 Long term (current) use of antithrombotics/antiplatelets; Z79.810 Long term (current) use of selective estrogen receptor modulators (SERMs); Z79.899 Other long term (current) drug therapy
CPT/HCPCS: 36415; 70450; 70496; 70498; 71045; 80047; 80048; 82550; 82553; 84443; 84484; 85025; 85610; 85730; 87631; 93005; 93041; 94760; 99285; Q9967

== ENCOUNTER 2023-02-10 23:35 | Emergency (ER) | payer MEDICARE ==
[~2023-02-10] VITALS: Ht 149.9 cm; Wt 56.2 kg
[~2023-02-10 23:35] MED LIST changes: +ATOR1TAB21
[2023-02-10 23:38] VITALS: BP 168/85; TEMP 97.2; O2SAT 98
== END 2023-02-11 00:01 | disposition left against medical advice (07) ==
LOC: M ED 23:35
DX: Z53.21 Procedure and treatment not carried out due to patient leaving prior to being seen by health care provider (principal)

== ENCOUNTER → 2023-03-08 | Outpatient (CLI) | payer MEDICARE | LOC: M PLAIMG 14:08 | PROVIDERS: ATTEND Physician Assistant Medical | DX: I25.2 Old myocardial infarction (principal) ==

== ENCOUNTER → 2023-03-22 | Outpatient (CLI) | payer MEDICARE | LOC: M RAD 11:11 | PROVIDERS: ATTEND Internal Medicine Hematology | DX: I63.9 Cerebral infarction, unspecified (principal) ==

== ENCOUNTER → 2023-04-25 | Outpatient (CLI) | payer MEDICARE | LOC: M WHC 07:32 | PROVIDERS: ATTEND Nurse Practitioner Family | DX: N64.4 Mastodynia (principal) | CPT/HCPCS: 77066; G0279 ==

== ENCOUNTER → 2023-04-26 | Outpatient (CLI) | payer MEDICARE ==
[2023-04-26 09:55] LABS: HEMATOCRIT 43.4 % (36.0-47.0); HEMOGLOBIN 14.3 g/dl (12.0-15.5); MEAN CORPUSCULAR HEMOGLOBIN 29.9 pg (27.0-33.0); MEAN CORPUSCULAR HGB CONC 32.9 g/dl (32.0-36.5); MEAN CORPUSCULAR VOLUME 90.8 fl (80.0-96.0); PLATELET COUNT, AUTOMATED 283 10^3/uL (150-450); RED BLOOD COUNT 4.78 10^6/uL (4.00-5.40); WHITE BLOOD COUNT 6.3 10^3/uL (4.0-10.0)
[2023-04-26 10:36] LABS: MAU/CREAT RATIO 1.7 MCG/MG (0.0-30.0)
[2023-04-26 10:39] LABS: C REACTIVE PROTEIN QUANTITATIV < 0.40 MG/DL (<1.0)
[2023-04-26 10:40] LABS: TOTAL 25(OH) VITAMIN D 84.6 NG/ML (20.0-100.0); VITAMIN B12 LEVEL 749 PG/ML (211-911)
[2023-04-26 10:41] LABS: ALBUMIN 3.8 G/DL (3.2-5.2); ALKALINE PHOSPHATASE 78 U/L (46-116); ALT/SGPT 30 U/L (7.0-40); AST/SGOT 25 U/L (<34); BILIRUBIN,TOTAL 0.4 MG/DL (0.3-1.2); BLOOD UREA NITROGEN 26 MG/DL (9-23); CALCIUM LEVEL 9.4 MG/DL (8.3-10.6); CARBON DIOXIDE LEVEL 31 MMOL/L (20-31); CHLORIDE LEVEL 103 MMOL/L (98-107); CHOLESTEROL LEVEL 191 MG/DL (<200); CHOLESTEROL RISK RATIO 2.32 (<5); GLOMERULAR FILTRATION RATE > 60.0 (>32); GLUCOSE, FASTING 87 MG/DL (74-106); LDL CHOLESTEROL 94.8 MG/DL (<100); SODIUM LEVEL 138 MMOL/L (136-145); TOTAL PROTEIN 7.5 G/DL (5.7-8.2); TRIGLYCERIDES LEVEL 71 MG/DL (<150)
[2023-04-26 10:42] LABS: THYROID STIMULATING HORMONE 3.577 uIU/ML (0.55-4.78)
[2023-04-26 10:43] LABS: FREE T4 0.89 NG/DL (0.89-1.76)
[2023-04-26 10:50] LABS: HEMOGLOBIN A1c 5.8 % (4.0-6.0)
== END ==
LOC: M WUC 08:04
PROVIDERS: ATTEND Internal Medicine Hematology
DX: E78.00 Pure hypercholesterolemia, unspecified (principal); M81.0 Age-related osteoporosis without current pathological fracture; I10 Essential (primary) hypertension; Z79.899 Other long term (current) drug therapy

== ENCOUNTER → 2023-05-29 | Outpatient (CLI) | payer MEDICARE | LOC: M SLEEP HO 05-18 10:57 | PROVIDERS: ATTEND Internal Medicine Hematology | DX: G47.33 Obstructive sleep apnea (adult) (pediatric) (principal) ==

== ENCOUNTER 2023-10-16 17:25 | Emergency (ER) | payer MEDICARE ==
[~2023-10-16] VITALS: Ht 152.4 cm; Wt 57.6 kg
[2023-10-16 18:51] LABS: BASO % 0.5 % (0.0-1.0); EOS # 0.1 10^3/uL (0.0-0.5); EOS % 1.1 % (0.0-3.0); HEMATOCRIT 38.4 % (36.0-47.0); HEMOGLOBIN 13.1 g/dl (12.0-15.5); LYMPH # 2.1 10^3/uL (1.5-5.0); LYMPH % 25.5 % (24.0-44.0); MEAN CORPUSCULAR HGB CONC 34.1 g/dl (32.0-36.5); MEAN CORPUSCULAR VOLUME 88.1 fl (80.0-96.0); MONO # 0.8 10^3/uL (0.0-0.8); MONO % 9.6 % (2.0-8.0); NEUTROPHILS # 5.1 10^3/uL (1.5-8.5); NEUTROPHILS % 62.9 % (36.0-66.0); PLATELET COUNT, AUTOMATED 279 10^3/uL (150-450); RED BLOOD COUNT 4.36 10^6/uL (4.00-5.40); WHITE BLOOD COUNT 8.1 10^3/uL (4.0-10.0)
[2023-10-16 19:12] LABS: C REACTIVE PROTEIN QUANTITATIV < 0.40 MG/DL (<1.0)
[2023-10-16 19:13] LABS: BLOOD UREA NITROGEN 28 MG/DL (9-23); CALCIUM LEVEL 9.2 MG/DL (8.3-10.6); CARBON DIOXIDE LEVEL 26 MMOL/L (20-31); CHLORIDE LEVEL 101 MMOL/L (98-107); CREATININE FOR GFR 0.84 MG/DL (0.55-1.30); GLOMERULAR FILTRATION RATE > 60.0 (>32); GLUCOSE, FASTING 97 MG/DL (74-106); POTASSIUM SERUM 3.6 MMOL/L (3.5-5.1); SODIUM LEVEL 135 MMOL/L (136-145)
[2023-10-16 19:21] LABS: ERYTHROCYTE SEDIMENTATION RATE 35 mm/hr (0-30)
[2023-10-17 01:43] VITALS: TEMP 98
[2023-10-17] MEDS: ACETAMINOPHEN TAB 650MG DOSE (2X325MG) PO ONE (01:52)
[2023-10-17] MEDS ORDERED: ISOVUE-370 76% 100ML VIAL As Ordered ONE (04:09)
[2023-10-17 06:11] VITALS: BP 169/85; O2SAT 99
== END 2023-10-17 06:15 | disposition home or self-care (01) ==
LOC: M ED 17:25
DX: H92.01 Otalgia, right ear (principal); I10 Essential (primary) hypertension; E78.5 Hyperlipidemia, unspecified; Z79.811 Long term (current) use of aromatase inhibitors; Z79.899 Other long term (current) drug therapy; Z79.82 Long term (current) use of aspirin; Z79.02 Long term (current) use of antithrombotics/antiplatelets
CPT/HCPCS: 36415; 70482; 76830; 76856; 80048; 85025; 85652; 86140; 99284; Q9967

== ENCOUNTER → 2023-10-16 | Outpatient (CLI) | payer MEDICARE | LOC: M RAD 13:43 | PROVIDERS: ATTEND Internal Medicine Hematology | DX: R10.30 Lower abdominal pain, unspecified (principal) ==

== ENCOUNTER → 2023-10-24 | Outpatient (CLI) | payer MEDICARE ==
[2023-10-24 10:35] LABS: BASO # 0.1 10^3/uL (0.0-0.2); BASO % 0.8 % (0.0-1.0); EOS # 0.2 10^3/uL (0.0-0.5); EOS % 2.5 % (0.0-3.0); HEMATOCRIT 40.8 % (36.0-47.0); HEMOGLOBIN 13.4 g/dl (12.0-15.5); LYMPH # 1.9 10^3/uL (1.5-5.0); LYMPH % 31.5 % (24.0-44.0); MEAN CORPUSCULAR HEMOGLOBIN 30.3 pg (27.0-33.0); MEAN CORPUSCULAR HGB CONC 32.8 g/dl (32.0-36.5); MEAN CORPUSCULAR VOLUME 92.3 fl (80.0-96.0); MONO # 0.5 10^3/uL (0.0-0.8); MONO % 8.9 % (2.0-8.0); NEUTROPHILS # 3.4 10^3/uL (1.5-8.5); PLATELET COUNT, AUTOMATED 271 10^3/uL (150-450); RED BLOOD COUNT 4.42 10^6/uL (4.00-5.40); WHITE BLOOD COUNT 6.1 10^3/uL (4.0-10.0)
[2023-10-24 10:45] LABS: FREE T4 0.92 NG/DL (0.89-1.76); THYROID STIMULATING HORMONE 2.042 uIU/ML (0.55-4.78)
[2023-10-24 10:46] LABS: C REACTIVE PROTEIN QUANTITATIV < 0.40 MG/DL (<1.0); TOTAL 25(OH) VITAMIN D 68.2 NG/ML (20.0-100.0); VITAMIN B12 LEVEL 632 PG/ML (211-911)
[2023-10-24 10:47] LABS: ALBUMIN 3.6 G/DL (3.2-5.2); ALKALINE PHOSPHATASE 90 U/L (46-116); ALT/SGPT 38 U/L (7.0-40); AST/SGOT 25 U/L (<34); BILIRUBIN,TOTAL 0.4 MG/DL (0.3-1.2); BLOOD UREA NITROGEN 28 MG/DL (9-23); CARBON DIOXIDE LEVEL 32 MMOL/L (20-31); CHLORIDE LEVEL 104 MMOL/L (98-107); CHOLESTEROL LEVEL 183 MG/DL (<200); CHOLESTEROL RISK RATIO 3.11 (<5); CREATININE FOR GFR 0.91 MG/DL (0.55-1.30); GLOMERULAR FILTRATION RATE > 60.0 (>32); GLUCOSE, FASTING 83 MG/DL (74-106); HDL CHOLESTEROL 58.8 MG/DL (>40); NON-HDL-C 124.2 MG/DL; POTASSIUM SERUM 4.2 MMOL/L (3.5-5.1); SODIUM LEVEL 138 MMOL/L (136-145); TOTAL PROTEIN 7.2 G/DL (5.7-8.2); TRIGLYCERIDES LEVEL 161 MG/DL (<150)
[2023-10-24 11:02] LABS: HEMOGLOBIN A1c 5.7 % (4.0-6.0)
[2023-10-24 11:06] LABS: CREATININE, URINE 163.5 MG/DL; MAU/CREAT RATIO 9.7 MCG/MG (0.0-30.0)
== END ==
LOC: M PLALAB 07:46
PROVIDERS: ATTEND Internal Medicine Hematology
DX: E78.00 Pure hypercholesterolemia, unspecified (principal); Z79.899 Other long term (current) drug therapy